=== PATIENT | male | born 1995 | race Caucasian/White ===

== ENCOUNTER 2020-08-23 17:34 | Emergency (ER) | payer MEDICAID ==
[~2020-08-23] VITALS: Ht 175.3 cm; Wt 90.9 kg
[2020-08-23] MEDS ORDERED: ACETAMINOPHEN 500 MG TABLET PO ONE (19:15)
[2020-08-23] MEDS ORDERED: IBUPROFEN 600 MG TABLET PO ONE (19:15)
[2020-08-23] MEDS ORDERED: LIDOCAINE 1% 10 ML VIAL INJ ONE (19:15)
[2020-08-23] MEDS ORDERED: BACITRACIN 0.9 GM PACKET OINTMENT TP ONE (19:15)
[2020-08-23] MEDS ORDERED: DOXYCYCLINE HYCLATE 100 MG TABLET PO ONE (20:15)
[2020-08-23 20:40] VITALS: BP 122/72
== END 2020-08-23 20:52 | disposition home or self-care (01) ==
LOC: EMS 17:38
DX: L60.0 Ingrowing nail (principal)
CPT/HCPCS: 11730; 99284; J3490